=== PATIENT | female | born 1965 | race Caucasian/White ===

== ENCOUNTER 2020-06-03 10:22 | Emergency (ER) | payer MEDICARE, OTHER ==
[~2020-06-03 10:22] MED LIST: 24HR ALLERGY REL5 MG PO; ARNUITY ELLIPT50 MCG PO; ASPIRIN EC81 MG PO; AZELASTINE205.5 MCG/; BUDESONIDE EC3 MG PO; CALCIUM 600 +1 EA15 PO; CERTAGEN1 EACH PO; CINNAMON500 MG PO; COLLAGEN PLUS1 EACH PO; COZAAR 25MG TAB25 MG PO; CYCLOSET0.8 MG PO; CYMBALTA 30MG C30 MG PO; D3 DOTS50 MCG PO; GINGER ROOT550 MG PO; HCTZ25 MG PO; HUMALOG100 UNIT/1 SC; HUMULIN R100 UNIT/1 SC; IPRAT-ALBUT 0.5-3 ML INH; LANTUS **100 UNITS/ SC; LIPITOR20 MG PO; MAG-OXIDE 400M400 MG PO; MELATONIN5 M2 PO; METFORMIN HCL500 MG PO; NYSTOP TOPICAL30 GM TOP; OMEPRAZOLE40 MG PO; ONDANSETRON ODT4 MG PO; OXYCODONE HCL10 MG PO; OZEMPIC1 MG/0.75 SC; PREGABALIN100 MG PO; PROAIR DIGIHAL90 MCG PO; REMERON15 MG PO; SINEQUAN50 MG PO; SYMBICORT 80-10.2 GM INH; TOPIRAMATE200 MG PO; TOUJEO MAX300 UNIT/1 PO; TRAZODONE 100M100 MG PO; TRAZODONE HCL150 MG PO; VANCOMYCIN1.25 GM/22 IV; WELLBUTRIN XL150 MG PO; XANAX0.5 MG PO; ZANAFLEX4 MG PO; ZOLPIDEM 5MG TAB5 MG PO
== END 2020-06-03 13:03 | disposition home or self-care (01) ==
LOC: FER 10:22
DX: M54.2 Cervicalgia (principal); M54.5 Low back pain; M25.551 Pain in right hip; M25.512 Pain in left shoulder; M25.552 Pain in left hip; M79.661 Pain in right lower leg; J45.909 Unspecified asthma, uncomplicated; E11.9 Type 2 diabetes mellitus without complications; J44.9 Chronic obstructive pulmonary disease, unspecified; F17.200 Nicotine dependence, unspecified, uncomplicated; Z89.511 Acquired absence of right leg below knee; W18.12XA Fall from or off toilet with subsequent striking against object, initial encounter; Y92.002 Bathroom of unspecified non-institutional (private) residence as the place of occurrence of the external cause
CPT/HCPCS: 72125; 72131; 73030; 73502; 73590; J1170

== ENCOUNTER 2021-06-11 19:04 | Emergency (ER) | payer MEDICARE, OTHER ==
[2021-06-11 20:04] LABS: BASOPHIL 0.4 % (0-2); EOSINOPHIL 2.8 % (0-5); HCT 36.6 % (37.0-47.0); HGB 11.2 g/dl (12.5-16.0); LYMPHOCYTE 19.2 % (15-48); MCH 29.2 pg (25.0-31.0); MCHC 30.6 g/dL (32.0-36.0); MCV 95.6 fL (78.0-100.0); MONOCYTE 9.4 % (0-12); NEUTROPHIL 67.7 % (41-80); NRBC 0.2; RBC 3.83 M/uL (4.20-5.40); RDW 13.9 % (11.5-14.0)
[2021-06-11 20:11] LABS: PLT 229 K/uL (150-400)
[2021-06-11 20:15] LABS: BUN/CREAT RATIO (CALC) 19.5 RATIO; CREATININE 1.49 mg/dL (0.51-0.95); POTASSIUM 4.4 mmol/L (3.5-5.1)
[2021-06-11 21:16] LABS: BILIRUBIN NEGATIVE (NEGATIVE); BLOOD TRACE-INTACT Ery/uL (NEGATIVE); CLARITY CLEAR (CLEAR); COLOR YELLOW (YELLOW); GLUCOSE (U) 3+ mg/dL (NORMAL); LEUKOCYTES NEGATIVE Leu/uL (NEGATIVE); NITRITE NEGATIVE (NEGATIVE); PROTEIN TRACE (LOW) mg/dL (NEGATIVE); UROBILINOGEN 0.2 mg/dL (0.2-1.0); pH 5.5 (5.0-9.0)
[2021-06-11 21:27] LABS: BACTERIA 4+
[2021-06-11 21:28] LABS: SQUAMOUS EPITHELIAL CELLS RARE; URINARY RBC RARE
== END 2021-06-11 23:30 | disposition home or self-care (01) ==
LOC: FER 19:04
PROVIDERS: Nurse Practitioner Family
DX: I11.0 Hypertensive heart disease with heart failure (principal); I50.9 Heart failure, unspecified; J44.9 Chronic obstructive pulmonary disease, unspecified; E11.9 Type 2 diabetes mellitus without complications; Z20.822 Contact with and (suspected) exposure to COVID-19; Z88.0 Allergy status to penicillin; Z88.1 Allergy status to other antibiotic agents; Z91.040 Latex allergy status
CPT/HCPCS: 36415; 71045; 80048; 81001; 83880; 84484; 85025; 87076; 87088; 87186; 93005; J1642; U0002

== ENCOUNTER 2021-10-07 14:04 | Emergency (ER) | payer MEDICARE, OTHER ==
[~2021-10-07 14:04] MED LIST changes: +BUMEX1 MG PO; +COZAAR50 MG PO; +ELIQUIS5 MG PO; +TOUJEO MAX300 UNIT/1 SC
[2021-10-07 15:19] LABS: BASOPHIL 0.6 % (0-2); EOSINOPHIL 7.4 % (0-5); HCT 33.6 % (37.0-47.0); HGB 10.5 g/dl (12.5-16.0); LYMPHOCYTE 34.4 % (15-48); MCH 28.6 pg (25.0-31.0); MCHC 31.3 g/dL (32.0-36.0); MCV 91.6 fL (78.0-100.0); MONOCYTE 11.3 % (0-12); NEUTROPHIL 45.8 % (41-80); NRBC 0; PLT 225 K/uL (150-400); RBC 3.67 M/uL (4.20-5.40); RDW 15.9 % (11.5-14.0); WBC 9.9 K/uL (4.0-10.5)
[2021-10-07 15:41] LABS: INR 0.98 (0.9-1.2); PROTHROMBIN TIME 12.7 SECONDS (11.9-13.9); PTT 29.2 SECONDS (24.9-34.6)
[2021-10-07 15:55] LABS: ALBUMIN 3.1 g/dL (3.4-5.0); BILIRUBIN - TOTAL 0.2 mg/dL (0.2-1.0); BUN/CREAT RATIO (CALC) 24.2 RATIO; CREATININE 1.28 mg/dL (0.51-0.95); TOTAL PROTEIN 7.1 g/dL (6.4-8.2)
== END 2021-10-07 18:24 | disposition home or self-care (01) ==
LOC: FER 14:04
PROVIDERS: Emergency Medicine
DX: I87.2 Venous insufficiency (chronic) (peripheral) (principal); R91.1 Solitary pulmonary nodule; I13.0 Hypertensive heart and chronic kidney disease with heart failure and stage 1 through stage 4 chronic kidney disease, or unspecified chronic kidney disease; E11.22 Type 2 diabetes mellitus with diabetic chronic kidney disease; N18.9 Chronic kidney disease, unspecified; I50.9 Heart failure, unspecified; Z88.0 Allergy status to penicillin; Z88.1 Allergy status to other antibiotic agents; Z91.040 Latex allergy status; Z91.09 Other allergy status, other than to drugs and biological substances; Z28.310 Unvaccinated for COVID-19
CPT/HCPCS: 36415; 36600; 71045; 71250; 80053; 82553; 82803; 83880; 84443; 84484; 85025; 85610; 85730; 93005